=== PATIENT | male | born 2000 | race Caucasian/White ===

== ENCOUNTER 2022-05-23 07:22 | Emergency (ER) | payer BC ==
[~2022-05-23] VITALS: Ht 188 cm; Wt 75.0 kg
[2022-05-23 07:34] VITALS: BP 151/87
[2022-05-23] MEDS ORDERED: DEXAMETHASONE 10 MG/ML VIAL IV ONE (08:15)
[2022-05-23] MEDS: DEXAMETHASONE 10 MG/ML VIAL IM ONE (08:44)
[2022-05-23] MEDS: KETOROLAC 60MG/2ML VIAL IM ONE (08:44)
[2022-05-23] MEDS ORDERED: AMOX-494 MT (10:24)
[2022-05-23] MEDS ORDERED: IBUP-2028 MT (10:24)
== END 2022-05-23 10:33 | disposition home or self-care (01) ==
LOC: ER 07:22
DX: J02.9 Acute pharyngitis, unspecified (principal); Z20.822 Contact with and (suspected) exposure to COVID-19
CPT/HCPCS: 87070; 87426; 87430; 96372; 99284; C9803; J1100; J1885